=== PATIENT | female | born 1985 | race Caucasian/White ===

== ENCOUNTER 2016-10-04 07:15 | Emergency (ER) | payer OTHER ==
[~2016-10-04] VITALS: Ht 167.6 cm; Wt 89.8 kg
[2016-10-04 07:15] VITALS: BP 116/58
[2016-10-04] MEDS ORDERED: LIDOCAINE 1% / SOD BICARB 8.4% 20 ML VIAL. IJ ONE (07:45)
--- NOTE | 2016-10-04 07:58 | PHYS DOC ---
Past Medical History Past Medical History: No Pertinent History Past Surgical History: Alcohol Use: Occasionally Drug Use: None Adult General Chief Complaint Chief Complaint: LACERATION/AVULSION HPI HPI Patient is a 31 year old female presents to the emergency department by EMS with a history of cutting the top of a cake this morning although it was frozen she states she used a serrated knife and cut her left index finger tip. She is right hand dominant states her tetanus if up to date. She currently has bleeding under controlled. Review of Systems Review of Systems Constitutional: Denies fever or chills [] Eyes: Denies change in visual acuity, redness, or eye pain [] HENT: Denies nasal congestion or sore throat [] Respiratory: Denies cough or shortness of breath [] Cardiovascular: No additional information not addressed in HPI [] GI: Denies abdominal pain, nausea, vomiting, bloody stools or diarrhea [] : Denies dysuria or hematuria [] Musculoskeletal: Denies back pain or joint pain [] Integument: Denies rash or skin lesions. Laceration to the tip of the left index finger Neurologic: Denies headache, focal weakness or sensory changes [] Current Medications Current Medications Current Medications Medications (Trade) Dose Ordered Sig/Nelly Start Time Stop Time Status Last Admin Dose Admin Lidocaine/Sodium Bicarbonate (Buffered Lidocaine 1%) 20 ml 1X ONCE 10/04/16 07:45 10/04/16 07:46 DC 10/04/16 07:43 20 ML Allergies Allergies Allergies Coded Allergies Type Severity Reaction Last Updated Verified acetaminophen Allergy Severe Anaphylaxis 10/04/16 Yes hydrocodone Allergy Severe Anaphylaxis 10/04/16 Yes Physical Exam Physical Exam Constitutional: Well developed, well nourished, no acute distress, non-toxic appearance. [] HENT: Normocephalic, atraumatic, bilateral external ears normal, oropharynx moist, no oral exudates, nose normal. [] Eyes: PERRLA, EOMI, conjunctiva normal, no discharge. [] Neck: Normal range of motion, no tenderness, supple, no stridor. [] Cardiovascular:Heart rate regular rhythm Lungs & Thorax: Bilateral breath sounds clear to auscultation [] Skin: Warm, dry, no erythema, no rash. Laceration to the left index finger tip approx size 1 cm Back: No tenderness Extremities: No tenderness, no cyanosis, no clubbing, ROM intact, no edema. [] Neurologic: Alert and oriented X 3, normal motor function, normal sensory function, no focal deficits noted. [] Psychologic: Affect normal, judgement normal, mood normal. [] Current Patient Data Vital Signs Vital Signs Date Time Temp Pulse Resp B/P Pulse Ox O2 Delivery O2 Flow Rate FiO2 10/04/16 07:15 98.4 64 16 116/58 97 Room Air 98.4 EKG EKG [] Radiology/Procedures Radiology/Procedures [] Course & Med Decision Making Course & Med Decision Making Pertinent Labs and Imaging studies reviewed. (See chart for details) Patient was provided with discharge instructions, treatment regimen and followup instructions. Signs and symptoms to return to the emergency department for signs and symptoms that become worse. [] Dragon Disclaimer Dragon Disclaimer This electronic medical record was generated, in whole or in part, using a voice recognition dictation system. Departure Departure Impression: Primary Impression: Laceration Disposition: HOME, SELF-CARE Condition: STABLE Referrals: NO PCP (PCP) Patient Instructions: Laceration Care, Adult, [id number], Sutured Wound Care , [id number] Additional Instructions: Activity as tolerated Ibuprofen for pain and discomfort ice packs on 20 minutes and off 20 minutes several times a day Elevation as much as possible Keep the area clean and dry Clean the site with soap and water twice a day and apply antibiotics to the area Watch for signs and symptoms of infection: redness, warmth, tenderness or any yellow/greenish drainage if this should happen followup immediately Otherwise followup with primary care provider in - for suture removal Return to emergency department as needed for signs and symptoms that become worse. Laceration/Wound Repair Laceration/Wound Repair : Wound Location: upper extremity Wound's Depth, Shape: superficial Wound Length (cm): 1 Wound Explored: clean Irrigated w/ Saline (ccs): 60 Betadine Prep?: Yes Anesthesia: 1% Lidocaine Volume Anesthetic (ccs): 3 Wound Repaired With: sutures Suture Size/Type: 3:0, nylon Number of Sutures: 2 Progress Digital block of 1% lidocaine to the left index finger with 3 ml injected. Irrigated with 50 ml NS, cleaned the area with betadine. 2 interrupted sutures placed. ARLENE ROTHMAN APRN Oct 04, 2016 07:58
== END 2016-10-04 08:08 | disposition home or self-care (01) ==
LOC: ER 07:15
DX: S61.211A Laceration without foreign body of left index finger without damage to nail, initial encounter (principal); Z88.5 Allergy status to narcotic agent; Z88.6 Allergy status to analgesic agent; W26.0XXA Contact with knife, initial encounter; Y93.89 Activity, other specified; Y92.89 Other specified places as the place of occurrence of the external cause; Y99.8 Other external cause status
CPT/HCPCS: 12001; 99283-25

== ENCOUNTER → 2018-04-22 | Outpatient (CLI) | payer OTHER ==
--- NOTE | 2018-04-22 11:29 | KCIC ---
EXAM: Bilateral diagnostic mammogram; right breast sonogram. HISTORY: 32-year-old female presents with a palpable right breast lump an left breast pain. TECHNIQUE: Full-field digital craniocaudal and mediolateral oblique views of both breasts are obtained for evaluation. Computer aided detection with [employer] USAD software version 9.3 was applied. Sonographic imaging of the right breast at the site of reported palpable abnormality was also performed. COMPARISON: None. BREAST PARENCHYMAL DENSITY: Level B - Scattered fibroglandular densities. FINDINGS: There are grouped benign-appearing microcalcifications within the posterior 9:00 position of the left breast. No clear suspicious calcification morphology is seen. There is focal asymmetry within the inferior aspect of the left breast in the mediolateral oblique projection without a clear correlate on the craniocaudal projection, favoring summation artifact. Sonographic imaging of the right breast demonstrates dilated ducts within the subareolar location primarily at the 9:00 and 8:00 positions. The dilated ducts at the 9:00 position contain debris. There is no intraductal blood flow to suggest a papilloma. No additional lesion is seen within the right breast. IMPRESSION: 1. Dilated ducts containing suspected debris within the subareolar aspect of the right breast primarily at the 8:00 and 9:00 positions. No intraductal blood flow is seen to suggest a papilloma. However, short-term follow-up with a right breast sonogram is recommended in 6 months to confirm stability. 2. Benign-appearing grouped or calcifications within the posterior 9:00 position of the left breast and suspected asymmetry due to summation artifact within the slightly inferior aspect of the left breast. Short-term follow-up with a left breast diagnostic mammogram is recommended in 6 months to confirm stability. 3. BI-RADS Category 3: Probably benign finding(s). Short term follow up with a left breast diagnostic mammogram and right breast sonogram in 6 months is recommended, as described above. If your mammogram demonstrates that you have dense breast tissue, which could hide abnormalities, and if you have other risk factors for breast cancer that have been identified, you might benefit from supplemental screening tests that may be suggested by your ordering physician. Dense breast tissue, in and of itself, is a relatively common condition. This information is not provided to cause undue concern, but rather to raise your awareness and to promote discussion with your physician regarding the presence of other risk factors, in addition to dense breast tissue. A report of your mammography results will be sent to you and your physician. You should contact your physician if you have any questions or concerns regarding this report. Mammography is a sensitive method for finding small breast cancers, but it does not detect them all and is not a substitute for careful clinical examination. A negative mammogram does not negate a clinically suspicious finding and should not result in delay in biopsying a clinically suspicious abnormality. PQRS compliance statement - Patient information was entered into a reminder system with a target due date for the next mammogram. "Our facility is accredited by the [employer] Mammography Program." Electronically signed by: Abida Holliday MD (04/22/2018 11:26 AM) [id number]
== END | disposition home or self-care (01) ==
LOC: KCIC US 10:01
PROVIDERS: ATTEND Obstetrics & Gynecology
DX: N63.14 Unspecified lump in the right breast, lower inner quadrant (principal); N64.4 Mastodynia
CPT/HCPCS: 76641; 77066